=== PATIENT | female | born 1950 | race Caucasian/White ===

== ENCOUNTER 2016-10-12 19:46 | Emergency (ER) | payer MEDICARE, OTHER ==
[2016-10-12 20:21] VITALS: BP 108/68
[2016-10-12] MEDS ORDERED: Albuterol 2.5 MG/3 ML NEB.SOL* (0.083%) INH ONE (21:47)
[2016-10-12] MEDS ORDERED: Amoxicillin/Clavulanate TAB* 875 MG PO ONE (21:53)
--- NOTE | 2016-10-12 21:53 | UC ---
Respiratory Complaint HPI - HPI Summary HPI Summary: Patient has hx of COPD, o2 dependant. having SOB, fatique, fever. - History of Current Complaint Chief Complaint: UCRespiratory Stated Complaint: COUGH Time Seen by Provider: 10/12/16 21:43 Hx Obtained From: Patient ?: No Onset/Duration: Sudden Onset, Lasting Days Timing: Constant Severity Initially: Moderate Severity Currently: Severe Pain Intensity: 8 Pain Scale Used: 0-10 Numeric Character: Cough: Productive Aggravating Factors: Exertion, Deep Breaths, Recumbent Position Alleviating Factors: Nothing Associated Signs And Symptoms: Positive: Dyspnea, Fever, Chills, Wheezing, URI, Nasal Congestion - Risk Factors Pulmonary Embolism Risk Factors: Negative Cardiac Risk Factors: Smoking Pseudomonas Risk Factors: Negative Tuberculosis Risk Factors: Negative - Allergies/Home Medications Allergies/Adverse Reactions: Allergies Allergy/AdvReac Type Severity Reaction Status Date / Time MOST ANTIBIOTICS Allergy Severe Difficulty Uncoded 10/12/16 20:21 Breathing Home Medications: Home Medications Ibuprofen TAB* [Advil TAB*] 600 mg PO Q6H PRN 10/12/16 [History Confirmed ] PMH/Surg Hx/FS Hx/Imm Hx Previously Healthy: Yes Cardiovascular History Of: Reports: Hypertension Respiratory History Of: Reports: COPD, Asthma - Surgical History Surgical History: Yes Surgery Procedure, Year, and Place: HYSTERECTOMY, ADNOIDECTOMY - Family History Known Family History: Positive: Cardiac Disease, Hypertension - Social History Alcohol Use: None Substance Use Type: None Smoking Status (MU): Heavy Every Day Tobacco Smoker Type: Cigarettes Amount Used/How Often: 1/2 PPD Have You Smoked in the Last Year: Yes When Did the Patient Quit Smoking/Using Tobacco: 07/2016 Household Exposure Type: Cigarettes Review of Systems Constitutional: Fever, Chills, Fatigue Skin: Rash Eyes: Negative ENT: Sore Throat, Ear Ache, Nasal Discharge Respiratory: Shortness Of Breath, Cough Cardiovascular: Negative Gastrointestinal: Negative Genitourinary: Negative Motor: Negative Neurovascular: Negative Musculoskeletal: Negative, Myalgia Neurological: Headache All Other Systems Reviewed And Are Negative: Yes Physical Exam Triage Information Reviewed: Yes Appearance: Well-Nourished, Ill-Appearing, Pain Distress Vital Signs: Initial Vital Signs Temp 100.1 F 10/12/16 20:13 Pulse 92 10/12/16 20:13 Resp 20 10/12/16 20:13 BP 108/68 02/12/17 20:13 Pulse Ox 95 10/12/16 20:13 Vital Signs Reviewed: Yes Eye Exam: Normal Eyes: Positive: Conjunctiva Clear, Conjunctiva Inflamed ENT: Positive: Pharyngeal erythema, Nasal drainage, TM dull, Muffled/hoarse voice Dental Exam: Normal Neck exam: Normal Neck: Positive: Supple, Nontender, No Lymphadenopathy Respiratory Exam: Normal Respiratory: Positive: Respiratory distress - mild, Decreased breath sounds, Crackles, Rhonchi, Wheezing, Inspiration Cardiovascular Exam: Normal Cardiovascular: Positive: No Murmur, Pulses Normal, Tachycardia Abdominal Exam: Normal Abdomen Description: Positive: Nontender, No Organomegaly, Soft Bowel Sounds: Positive: Present Musculoskeletal Exam: Normal Musculoskeletal: Positive: Strength Intact, ROM Intact, No Edema Neurological Exam: Normal Neurological: Positive: Alert, Muscle Tone Normal Psychological Exam: Normal Skin: Positive: rashes - red pruitic rash on neck, states it has improved, was all over her face yesterday, she states she gets them from time to time. Diagnostic Evaluation - Laboratory O2 Sat by Pulse Oximetry: 95 Respiratory Course/Dx - Course Course Of Treatment: hx obtained, exam performed, albuterol neb administered, patient took motrin 3 hours ago. allergic to alot of antibiotics, she is not sure which ones, she knows she can take augmentin and amoxicillin. treate dwith augmentin for otitis media and bronchitis - Differential Dx/Diagnosis Differential Diagnosis/HQI/PQRI: Aspiration, Asthma, Bronchitis, Exacerbation Of COPD, Laryngitis, Lower Resp Infection, Sinusitis, Tuberculosis Provider Diagnoses: COPD. Bronchitis. FEver. RIght otitis media Discharge - Discharge Plan Condition: Stable Disposition: HOME Patient Education Materials: Acute Bronchitis (ED) Additional Instructions: take the medication as prescribed. Use the albuterol treatment every 4 hours as needed. Continue with ibuprofen for fever. I recommend follow up with Dr Torre in 2 days to check your progress. Report to ER if you become more SOB , or are having any increased respiratory difficulty.
== END 2016-10-12 22:05 | disposition home or self-care (01) ==
LOC: UCCORT 19:46
DX: R06.02 Shortness of breath (principal); J44.9 Chronic obstructive pulmonary disease, unspecified; J20.9 Acute bronchitis, unspecified; R50.9 Fever, unspecified; H66.91 Otitis media, unspecified, right ear; Z88.1 Allergy status to other antibiotic agents; F17.210 Nicotine dependence, cigarettes, uncomplicated
CPT/HCPCS: 99212; A9270-GY; G0463

== ENCOUNTER 2016-11-06 19:16 | Emergency (ER) | payer MEDICARE, OTHER ==
[2016-11-06 19:36] VITALS: BP 117/74
--- NOTE | 2016-11-06 20:38 | UC ---
Respiratory Complaint HPI - HPI Summary HPI Summary: diagnosed with pneumonia last week at [facility] by her pulmonolgist. She was given 5 days of doxy and prednisone. She improved, and her sats have been better, but she has persistent shortness of breath, wheeze. She is concerned that the course of doxy was too short, and she would like it extended. History of oxygen dependent COPD, last week her sats were dipping into the 80's with O2. - History of Current Complaint Chief Complaint: UCRespiratory Stated Complaint: RIB PAIN/COUGH Time Seen by Provider: 11/06/16 20:28 Hx Obtained From: Patient Onset/Duration: Gradual Onset, Lasting Days - 7 Timing: Intermittent Episodes Severity Initially: Moderate Severity Currently: Moderate Character: Cough: Productive - Less able to expectorate in the past day Aggravating Factors: Deep Breaths, Recumbent Position Alleviating Factors: Bronchodilator Associated Signs And Symptoms: Positive: Dyspnea, Hoarseness - Risk Factors Pulmonary Embolism Risk Factors: Negative Cardiac Risk Factors: Hypertension - Allergies/Home Medications Allergies/Adverse Reactions: Allergies Allergy/AdvReac Type Severity Reaction Status Date / Time MOST ANTIBIOTICS Allergy Severe Difficulty Uncoded 11/06/16 19:24 Breathing Home Medications: Home Medications Fluticasone-Salmeterol 250-50* [Advair Diskus 250-50*] 1 puff BID 11/06/16 [ History Confirmed 11/06/16] Tiotropium CAP.INH* [Spiriva CAP.INH*] 1 cap DAILY 11/06/16 [History Confirmed 11/06/16] PMH/Surg Hx/FS Hx/Imm Hx Cardiovascular History Of: Reports: Hypertension Respiratory History Of: Reports: COPD, Asthma - Surgical History Surgical History: Yes Surgery Procedure, Year, and Place: HYSTERECTOMY, ADNOIDECTOMY - Family History Known Family History: Positive: Cardiac Disease, Hypertension - Social History Lives: With Family Alcohol Use: None Substance Use Type: None Smoking Status (MU): Former Smoker Type: Cigarettes Amount Used/How Often: 1/2 PPD Have You Smoked in the Last Year: Yes When Did the Patient Quit Smoking/Using Tobacco: 07/2016 Household Exposure Type: Cigarettes - Immunization History Most Recent Influenza Vaccination: 2016 Most Recent Tetanus Shot: Unk Most Recent Pneumonia Vaccination: NONE-ALLERGIC TO VACCINE Review of Systems Constitutional: Fatigue Skin: Negative Eyes: Negative ENT: Negative Respiratory: Shortness Of Breath, Cough Cardiovascular: Chest Pain - left lower rib cage with coughing and deep inspiration. Gastrointestinal: Negative Genitourinary: Negative Motor: Negative Neurovascular: Negative Musculoskeletal: Negative Neurological: Negative Psychological: Anxious All Other Systems Reviewed And Are Negative: Yes Physical Exam Triage Information Reviewed: Yes Appearance: Ill-Appearing - looks chronically unwell; oxygen in place. Vital Signs: Initial Vital Signs Temp 97.5 F 11/06/16 19:31 Pulse 77 11/06/16 19:31 Resp 18 11/06/16 19:31 BP 117/74 11/06/16 19:31 Pulse Ox 97 11/06/16 19:31 Vital Signs Reviewed: Yes Eyes: Positive: Conjunctiva Clear ENT: Positive: Pharynx normal Neck exam: Normal Neck: Positive: Supple, Nontender Respiratory: Positive: Decreased breath sounds - to both bases; no crackles in bases., Rhonchi, Expiration - prolonged expiration and wheeze throughout Cardiovascular: Positive: RRR, No Murmur Musculoskeletal Exam: Normal Neurological: Positive: Alert, Muscle Tone Normal Psychological Exam: Normal Skin Exam: Normal UC Diagnostic Evaluation - Laboratory O2 Sat by Pulse Oximetry: 97 Respiratory Course/Dx - Course Course Of Treatment: doxycycline for treatment of pneumonia (diagnosed one week ago). Additional prednisone on hand if needed. - Differential Dx/Diagnosis Differential Diagnosis/HQI/PQRI: Asthma, Exacerbation Of COPD, Laryngitis, Sinusitis Provider Diagnoses: COPD exacerbation with pneumonia Discharge - Discharge Plan Condition: Stable Disposition: HOME Prescriptions: DOXYcycline CAP(*) [DOXYcycline 100MG CAP(*)] 100 mg PO BID #20 cap Prednisone 20 mg PO BID #10 tab Patient Education Materials: COPD (Chronic Obstructive Pulmonary Disease) (ED) Referrals: Ambrose Torre MD [Primary Care Provider] - Additional Instructions: As discussed, you will extend the course of doxycycline to treat your pneumonia for another 7 to 10 benny. If you are feeling well, you can stop after 7 days. You have a reserve prescription for prednisone to use if you are feeling short of breath. Use mucinex 600mg twice daily as an expectorant.
== END 2016-11-06 20:42 | disposition home or self-care (01) ==
LOC: UCCORT 19:16
DX: J44.1 Chronic obstructive pulmonary disease with (acute) exacerbation (principal); J45.909 Unspecified asthma, uncomplicated; J18.9 Pneumonia, unspecified organism; Z88.1 Allergy status to other antibiotic agents; Z87.891 Personal history of nicotine dependence
CPT/HCPCS: 99212; G0463

== ENCOUNTER 2018-12-12 18:44 | Emergency (ER) | payer MEDICARE, OTHER ==
[2018-12-12 19:30] VITALS: BP 134/66
--- NOTE | 2018-12-12 19:45 | UC ---
General HPI - HPI Summary HPI Summary: PT C/O WORSENING COUGH WITH CONGESTION X 2 WEEKS. HX COPD. + WHEEZING AND PALACIOS. NO CP OR FEVER PT ALSO C/O TOPS OF HER FEET BEING RED SINCE YESTERDAY. SHE NOTES HER FEET ARE ALWAYS SWOLLEN AND SHE HAS SEEN HERE PCP FOR THIS. - History of Current Complaint Chief Complaint: UCRespiratory Stated Complaint: COUGH/CONGESTION Time Seen by Provider: 12/12/18 19:35 Hx Obtained From: Patient Onset/Duration: Gradual Onset Timing: Constant Pain Intensity: 0 - Allergy/Home Medications Allergies/Adverse Reactions: Allergies Allergy/AdvReac Type Severity Reaction Status Date / Time MOST ANTIBIOTICS Allergy Severe Difficulty Uncoded 12/12/18 19:20 Breathing Home Medications: Home Medications Water Pill 1 tab DAILY 12/12/18 [History Confirmed 12/12/18] PMH/Surg Hx/FS Hx/Imm Hx - Additional Past Medical History Additional PMH: EDEMA TO BLE'S Cardiovascular History: Hypertension Respiratory History: COPD Neurological History: Seizures - Surgical History Surgical History: Yes Surgery Procedure, Year, and Place: HYSTERECTOMY, ADNOIDECTOMY - Family History Known Family History: Positive: Cardiac Disease, Hypertension - Social History Alcohol Use: None Substance Use Type: None Smoking Status (MU): Former Smoker Type: Cigarettes Amount Used/How Often: 1/2 PPD Have You Smoked in the Last Year: Yes When Did the Patient Quit Smoking/Using Tobacco: 07/2016 Household Exposure Type: Cigarettes - Immunization History Most Recent Influenza Vaccination: 2015 Most Recent Tetanus Shot: Unk Most Recent Pneumonia Vaccination: NONE-ALLERGIC TO VACCINE Review of Systems All Other Systems Reviewed And Are Negative: Yes Constitutional: Negative: Fever Skin: Positive: Rash - TOPS OF FEET ARE RED. Respiratory: Positive: Shortness Of Breath, Cough Cardiovascular: Negative: Palpitations, Chest Pain Musculoskeletal: Positive: Edema - BLE'S(FEET/ANKLES) CHRONIC Physical Exam Triage Information Reviewed: Yes Appearance: Well-Appearing Vital Signs: Initial Vital Signs Temp 97.9 F 12/12/18 19:22 Pulse 87 12/12/18 19:22 Resp 18 12/12/18 19:22 BP 134/66 12/12/18 19:22 Pulse Ox 96 12/12/18 19:22 Vital Signs Reviewed: Yes Eyes: Positive: Conjunctiva Clear ENT: Positive: Pharynx normal, TMs normal, Other - WEARING A NASAL CANNULA. Negative: Nasal congestion Neck: Positive: Supple, Nontender, No Lymphadenopathy, Other: - NO JVD Respiratory: Positive: No respiratory distress, Decreased breath sounds, Other: - MILD SCATTERED WHEEZES. COUGH IS CONGESTED. Negative: Crackles Cardiovascular: Positive: RRR, No Murmur Abdomen Description: Positive: Nontender Musculoskeletal: Positive: ROM Intact, Edema @ - mILD FROM ANKLES DOWN Neurological: Positive: Alert Psychological: Positive: Age Appropriate Behavior Skin Exam: Normal, Other - DORSAL SURFACES OF BOTH FEET ARE RED AND WARM. THE FEET HAVE FULL S/V/M FUNCTION WITH STRONG PULSES. tHE REST OF PT'S SKIN IS RASH FREE. Course/Dx - Differential Dx - Multi-Symptom Differential Diagnoses: Other - NON TOXIC. NOT HYPOXIC. PT NOTES ONLY ANTIBIOTIC SHE CAN TAKE IS THE PCN'S THUS WILL TX WITH AUGMENTIN AND PRENISONE PLUS CLOSE F/U. - Diagnoses Provider Diagnosis: COPD exacerbation, Cellulitis Discharge - Sign-Out/Discharge Documenting (check all that apply): Patient Departure All imaging exams completed and their final reports reviewed: No Studies - Discharge Plan Condition: Stable Disposition: HOME Prescriptions: Amoxicillin/Clavulanate TAB* [Augmentin TAB 875*] 875 mg PO BID 10 Days #20 tab predniSONE TAB* [Deltasone TAB*] 50 mg PO DAILY #7 tab Patient Education Materials: Cellulitis (ED), COPD (Chronic Obstructive Pulmonary Disease) (ED) Referrals: Ambrose Torre MD [Primary Care Provider] - 3 Days Additional Instructions: USE THE ALBUTEROL INHALER OR THE NEBULIZER EVERY 6 HOURS - Billing Disposition and Condition Condition: STABLE Disposition: Home
[2018-12-12] MEDS ORDERED: Amoxicillin/Clavulanate TAB* 875 MG PO ONE (19:47)
[2018-12-12] MEDS ORDERED: predniSONE TAB* 20 MG PO ONE (19:48)
== END 2018-12-12 20:04 | disposition home or self-care (01) ==
LOC: UCCORT 18:44
DX: J44.1 Chronic obstructive pulmonary disease with (acute) exacerbation (principal); L03.116 Cellulitis of left lower limb; L03.115 Cellulitis of right lower limb; R60.0 Localized edema; I10 Essential (primary) hypertension; R56.9 Unspecified convulsions; Z88.1 Allergy status to other antibiotic agents; Z87.891 Personal history of nicotine dependence
CPT/HCPCS: 99212; A9270-GY; G0463; J7512

== ENCOUNTER 2019-02-06 21:10 | Emergency (ER) | payer MEDICARE, OTHER ==
[2019-02-06 21:29] VITALS: BP 115/64
[2019-02-06] MEDS ORDERED: predniSONE TAB* 20 MG PO ONE (21:50)
[2019-02-06] MEDS ORDERED: Amoxicillin/Clavulanate TAB* 875 MG PO ONE (21:50)
--- NOTE | 2019-02-06 21:53 | UC ---
Respiratory Complaint HPI - HPI Summary HPI Summary: 68-year-old woman comes in with a chief complaint of shortness of breath and edema. Patient has chronic COPD and is on chronic oxygen. She reports about a week and a half ago she started with upper respiratory tract infection symptoms with runny nose and cough and chest congestion. Ever since that time she's been more short of breath. Today was worse. She's also feeling tired. She also notices some edema around her ankles. She is on a water pill but she can' t tell me whether or not she's ever had congestive heart failure. Denies any chest pain. She tells me when she had these symptoms before primary care doctor gave her Augmentin and prednisone and she got better. - History of Current Complaint Chief Complaint: UCRespiratory Stated Complaint: CHEST CONGESTION,SINUSES Time Seen by Provider: 02/06/19 21:21 Pain Intensity: 5 - Allergies/Home Medications Allergies/Adverse Reactions: Allergies Allergy/AdvReac Type Severity Reaction Status Date / Time MOST ANTIBIOTICS Allergy Severe Difficulty Uncoded 02/06/19 21:25 Breathing PMH/Surg Hx/FS Hx/Imm Hx Previously Healthy: Yes Cardiovascular History: Other - EDEMA Respiratory History: COPD - Surgical History Surgical History: Yes Surgery Procedure, Year, and Place: HYSTERECTOMY, ADNOIDECTOMY - Family History Known Family History: Positive: Cardiac Disease, Hypertension - Social History Alcohol Use: None Substance Use Type: None Smoking Status (MU): Former Smoker Type: Cigarettes Amount Used/How Often: 1/2 PPD Have You Smoked in the Last Year: Yes When Did the Patient Quit Smoking/Using Tobacco: 07/2016 Household Exposure Type: Cigarettes - Immunization History Most Recent Influenza Vaccination: 2015 Most Recent Tetanus Shot: Unk Most Recent Pneumonia Vaccination: NONE-ALLERGIC TO VACCINE Review of Systems All Other Systems Reviewed And Are Negative: Yes Constitutional: Positive: Fatigue Skin: Positive: Negative Eyes: Positive: Negative ENT: Positive: Nasal Discharge, Sinus Congestion Respiratory: Positive: Shortness Of Breath, Cough, Other - SEE HPI Cardiovascular: Positive: Negative Gastrointestinal: Positive: Negative Motor: Positive: Negative Neurovascular: Positive: Negative Musculoskeletal: Positive: Edema Neurological: Positive: Negative Psychological: Positive: Negative Is Patient Immunocompromised?: No Physical Exam Triage Information Reviewed: Yes Appearance: Well-Appearing, No Pain Distress, Well-Nourished Vital Signs: Initial Vital Signs Temp 97.5 F 02/06/19 21:26 Pulse 81 02/06/19 21:26 Resp 16 02/06/19 21:26 BP 115/64 02/06/19 21:26 Pulse Ox 96 02/06/19 21:26 Vital Signs Reviewed: Yes Eye Exam: Normal Eyes: Positive: Conjunctiva Clear ENT: Positive: Pharynx normal, Nasal congestion, TMs normal Neck: Positive: Supple Respiratory: Positive: No respiratory distress, Wheezing - UPPER AND MID LUNGS B /L.. Negative: Crackles Cardiovascular: Positive: RRR Musculoskeletal: Positive: Strength Intact, ROM Intact, Edema @ - B/L ANKLE EDEMA Neurological: Positive: Alert, Muscle Tone Normal Psychological Exam: Normal Psychological: Positive: Age Appropriate Behavior Skin Exam: Normal Respiratory Course/Dx - Course Course Of Treatment: We discussed getting a chest x-ray which the patient declined. We discussed the different possibilities of bronchitis COPD exacerbation and congestive heart failure. On examination the patient did have wheezes in the upper lungs but he did not hear any crackles. She does have bilateral pedal edema. We discussed treatment patient prefers to be on the antibiotic this time and the prednisone. The plan is to do that and have the patient follow-up with her doctor in the next 1-3 days. We also discussed that if she did not get better or got worse she needed to get reevaluated in the emergency department. - Differential Dx/Diagnosis Provider Diagnosis: Bronchitis, COPD exacerbation Discharge - Sign-Out/Discharge Documenting (check all that apply): Patient Departure All imaging exams completed and their final reports reviewed: No Studies - Discharge Plan Condition: Stable Disposition: HOME Prescriptions: Amoxicillin/Clavulanate TAB* [Augmentin TAB 875*] 875 mg PO BID #19 tab predniSONE TAB* [Deltasone 20 MG TAB*] 40 mg PO DAILY #8 tab Patient Education Materials: Acute Bronchitis (ED) Referrals: Ambrose Torre MD [Primary Care Provider] - Additional Instructions: FOLLOW UP WITH YOUR DOCTOR IN THE NEXT 1-3 DAYS. GO TO THE EMERGENCY DEPARTMENT IF YOUR CONDITION WORSENS; SHORTNESS OF BREATH, CHEST PAIN, YOU FEEL ILL OR ANY QUESTIONS OR CONCERNS. - Billing Disposition and Condition Condition: STABLE Disposition: Home
== END 2019-02-06 21:58 | disposition home or self-care (01) ==
LOC: UCCORT 21:10
DX: J40 Bronchitis, not specified as acute or chronic (principal); J44.1 Chronic obstructive pulmonary disease with (acute) exacerbation; Z87.891 Personal history of nicotine dependence
CPT/HCPCS: 99212; A9270-GY; G0463; J7512

== ENCOUNTER 2019-07-29 18:31 | Emergency (ER) | payer MEDICARE, OTHER ==
[2019-07-29 18:57] VITALS: BP 112/74
--- NOTE | 2019-07-29 19:14 | UC ---
UC General HPI - HPI Summary HPI Summary: 68-year-old woman comes in with a chief complaint of mouth pain. Started couple weeks ago she does wear dentures. She also has COPD and she is on chronic oxygen therapy. She also uses inhaled steroids. She spoke to her doctor's office several days ago due to the symptoms and they called in nystatin. Patient use the nystatin 2 days ago without any difficulty. Yesterday she use the nystatin and she felt that her neck was swollen. She did not have any airway problems. The swelling has improved. - History of Current Complaint Chief Complaint: UCGeneralIllness Stated Complaint: THROAT COMPLAINT Time Seen by Provider: 07/29/19 18:49 Pain Intensity: 0 - Allergy/Home Medications Allergies/Adverse Reactions: Allergies Allergy/AdvReac Type Severity Reaction Status Date / Time MOST ANTIBIOTICS Allergy Severe Difficulty Uncoded 07/29/19 18:48 Breathing PMH/Surg Hx/FS Hx/Imm Hx Previously Healthy: Yes Cardiovascular History: Hypertension Respiratory History: COPD - Surgical History Surgical History: Yes Surgery Procedure, Year, and Place: hysterectomy. L knee ORIF. adenoidectomy - Family History Known Family History: Positive: Cardiac Disease, Hypertension - Social History Alcohol Use: None Substance Use Type: None Smoking Status (MU): Former Smoker Type: Cigarettes Amount Used/How Often: 1/2 PPD Have You Smoked in the Last Year: Yes When Did the Patient Quit Smoking/Using Tobacco: 07/2016 Household Exposure Type: Cigarettes - Immunization History Most Recent Influenza Vaccination: 2015 Most Recent Tetanus Shot: Unk Most Recent Pneumonia Vaccination: NONE-ALLERGIC TO VACCINE Review of Systems All Other Systems Reviewed And Are Negative: Yes Constitutional: Positive: Negative Skin: Positive: Negative Eyes: Positive: Negative ENT: Positive: Other - see hpi Respiratory: Positive: Shortness Of Breath - Chronic due to COPD Cardiovascular: Positive: Negative Gastrointestinal: Positive: Negative Motor: Positive: Negative Neurovascular: Positive: Negative Musculoskeletal: Positive: Negative Neurological: Positive: Negative Psychological: Positive: Negative Is Patient Immunocompromised?: No Physical Exam Triage Information Reviewed: Yes Appearance: Well-Appearing, No Pain Distress, Well-Nourished Vital Signs: Initial Vital Signs Temp 98.2 F 07/29/19 18:50 Pulse 80 07/29/19 18:50 Resp 18 07/29/19 18:50 BP 112/74 07/29/19 18:50 Pulse Ox 97 07/29/19 18:50 Vital Signs Reviewed: Yes Eye Exam: Normal Eyes: Positive: Conjunctiva Clear ENT: Positive: Pharynx normal - Patient has upper dentures. No thrush appreciated on exam. Oropharynx open. Voice is normal. Neck: Positive: Supple Respiratory: Positive: Lungs clear, Normal breath sounds, No respiratory distress - Patient is wearing oxygen Cardiovascular: Positive: RRR Musculoskeletal: Positive: Strength Intact, ROM Intact, Edema @ - Trace bilateral pedal edema Neurological: Positive: Alert Psychological: Positive: Age Appropriate Behavior Skin Exam: Normal Course/Dx - Course Course Of Treatment: Most likely cause of the initial mouth pain and discoloration is thrush. I did not appreciate any thrush on examination today. It's difficult to tell with are not nystatin and caused the patient's symptoms of the throat swelling. Going to stop the nystatin at this time and use clotrimazole troches. Patient to follow-up with her primary care doctor go to the emergency department if worse. - Diagnoses Provider Diagnosis: Mouth pain Discharge ED - Sign-Out/Discharge Documenting (check all that apply): Patient Departure All imaging exams completed and their final reports reviewed: No Studies - Discharge Plan Condition: Stable Disposition: HOME Prescriptions: Clotrimazole BRANDON* [Mycelex Brandon*] 10 mg MT SEE INSTRUCTIONS #70 brandon Patient Education Materials: Oral Candidiasis (ED) Referrals: Ambrose Torre MD [Primary Care Provider] - Additional Instructions: FOLLOW UP WITH YOUR DOCTOR. GET REEVALUATED SOONER IF NOT IMPROVING OR GO TO THE EMERGENCY DEPARTMENT IF WORSE; THROAT SWELLING, DIFFICULTY BREATHING, SHORTNESS OF BREATH, YOU FEEL ILL OR ANY QUESTIONS OR CONCERNS. - Billing Disposition and Condition Condition: STABLE Disposition: Home
== END 2019-07-29 19:19 | disposition home or self-care (01) ==
LOC: UCCORT 18:31
DX: K13.79 Other lesions of oral mucosa (principal); J44.9 Chronic obstructive pulmonary disease, unspecified; I10 Essential (primary) hypertension; Z88.1 Allergy status to other antibiotic agents; Z87.891 Personal history of nicotine dependence
CPT/HCPCS: 99212; G0463